=== PATIENT | male | born 1985 | race Two or more races ===

== ENCOUNTER 2016-12-22 12:57 | Emergency (ER) | payer SELFPAY ==
[2016-12-22] MEDS ORDERED: MAALOX/LIDO2%VISC/SIMETHICONE 40 ML BOT ONE (15:10)
[2016-12-22] MEDS ORDERED: ONDANSETRON 4 MG ODT TAB ONE (15:10)
== END 2016-12-22 15:35 | disposition home or self-care (01) ==
LOC: ED 12:57
DX: F10.129 Alcohol abuse with intoxication, unspecified (principal); K29.70 Gastritis, unspecified, without bleeding; Y90.9 Presence of alcohol in blood, level not specified
CPT/HCPCS: 99283 ×2; A9270 ×2